=== PATIENT | male | born 1955 | race Caucasian/White ===

== ENCOUNTER 2018-08-29 11:36 | Inpatient (IN) | payer MEDICAID, OTHER ==
[~2018-08-29] VITALS: Ht 188 cm; Wt 97.5 kg
[2018-08-29 12:14] LABS: BASOPHILS % (AUTO) 0.5 % (0.0-2.0); EOSINOPHILS % (AUTO) 0.1 % (1.0-6.0); HEMATOCRIT 31.6 % (41-53); HEMOGLOBIN 10.5 g/dL (13.5-17.5); LYMPHOCYTES # (AUTO) 0.2 K/uL (1.0-4.8); LYMPHOCYTES % (AUTO) 3.4 % (22.0-44.0); MEAN CORPUSCULAR HEMOGLOBIN 35.3 pg (26.0-34.0); MEAN CORPUSCULAR HGB CONC 33.1 G/dL (31.0-37.0); MEAN CORPUSCULAR VOLUME 107 fL (80-100); MONOCYTES # (AUTO) 0.4 K/uL (0.1-1.0); MONOCYTES % (AUTO) 5.4 % (2.0-9.0); NEUTROPHILS # (AUTO) 6.6 K/uL (1.8-7.7); NEUTROPHILS % (AUTO) 90.6 % (40.0-70.0); RED BLOOD CELL COUNT(AUTO) 2.96 MIL/uL (4.50-5.90); RED CELL DISTRIBUTION WIDTH 19.2 % (11.5-14.5)
[2018-08-29 12:23] LABS: INR 1.2 (0.9-1.1); PROTHROMBIN TIME 12.3 SEC (9.4-11.6)
[2018-08-29 12:30] LABS: ALANINE AMINOTRANSFERASE 43 U/L (12-78); ALBUMIN 2.9 g/dL (3.4-5.0); ALKALINE PHOSPHATASE 112 U/L (46-116); ANION GAP 13 mmol/L (8-16); ASPARTATE AMINOTRANSFERASE 37 U/L (15-37); BILIRUBIN,TOTAL 3.7 mg/dL (0.1-1.0); CALCIUM, TOTAL 7.9 mg/dL (8.8-10.5); CARBON DIOXIDE 28 mmol/L (22-29); CHLORIDE 104 mmol/L (98-107); CREATININE 0.92 mg/dL (0.60-1.30); GLOMERULAR FILTR. RATE CALC > 60 mL/min (>60); GLUCOSE,RANDOM 248 mg/dL (70-110); SODIUM SERUM 145 mmol/L (136-145); TOTAL PROTEIN, SERUM 6.1 g/dL (6.4-8.2); UREA NITROGEN, BLOOD 41 mg/dL (7-18)
[2018-08-29 12:31] LABS: POTASSIUM 2.5 mmol/L (3.5-5.1)
[2018-08-29 12:33] LABS: PLATELET COUNT (AUTO) 91 K/uL (150-450)
[2018-08-29] MEDS ORDERED: MIDAZOLAM HCL 2 MG/2 ML VIAL IVP ONE ×2 (12:45→15:00)
[2018-08-29] MEDS ORDERED: POTASSIUM CHL 20 MEQ/0.9% NS 1,000 ML IV ONE (12:45)
[2018-08-29] MEDS ORDERED: FUROSEMIDE 40 MG/4 ML VIAL IVP ONE (13:00)
[2018-08-29] MEDS ORDERED: INSNOV SQ (13:43)
[2018-08-29] MEDS ORDERED: [UNRECOGNIZED DRUG - CODE] IV (13:43)
[2018-08-29] MEDS ORDERED: FURO100P IV (13:43)
[2018-08-29] MEDS ORDERED: CIPR500S5 PO (13:43)
[2018-08-29] MEDS ORDERED: [UNRECOGNIZED DRUG - CODE] IV (13:43)
[2018-08-29] MEDS: PIPERACILLIN/TAZO 3.375 GM/D5W 50 ML IV SCH ×2 (14:10→21:36)
[2018-08-29] MEDS ORDERED: FentaNYL CITRATE-PF 100 MCG/2 ML VIAL IVP ONE (14:15)
[2018-08-29] MEDS ORDERED: CLOPIDOGREL BISULFATE 75 MG TABLET PO ONE (14:30)
[2018-08-29] MEDS ORDERED: ACETAMINOPHEN 325 MG TABLET PO PRN (14:30)
[2018-08-29] MEDS ORDERED: HEPARIN SODIUM 25000 UNITS/D5W 250 ML IV PRN (14:30)
[2018-08-29] MEDS ORDERED: 0.9% SODIUM CHLORIDE 10 ML SYRINGE IVP PRN (14:30)
[2018-08-29] MEDS ORDERED: ONDANSETRON HCL 4 MG/2 ML VIAL IVP PRN (14:30)
[2018-08-29] MEDS ORDERED: VANCOMYCIN HCL 1.5 GM in DEXTROSE 5%-WATER 250 ML IV SCH (14:30)
[2018-08-29] MEDS ORDERED: HEPARIN SODIUM,PORCINE 5,000 UNITS/ML VIAL IVP PRN ×2 (14:45)
[2018-08-29 16:43] LABS: GLUCOSE,POINT OF CARE 232 MG/DL (70-110)
[2018-08-29 17:15] LABS: ALANINE AMINOTRANSFERASE 42 U/L (12-78); ALKALINE PHOSPHATASE 102 U/L (46-116); ANION GAP 10 mmol/L (8-16); ASPARTATE AMINOTRANSFERASE 39 U/L (15-37); BILIRUBIN,TOTAL 3.6 mg/dL (0.1-1.0); CALCIUM, TOTAL 7.8 mg/dL (8.8-10.5); CARBON DIOXIDE 31 mmol/L (22-29); CHLORIDE 104 mmol/L (98-107); CREATININE 0.97 mg/dL (0.60-1.30); GLOMERULAR FILTR. RATE CALC > 60 mL/min (>60); GLUCOSE,RANDOM 243 mg/dL (70-110); SODIUM SERUM 145 mmol/L (136-145); TOTAL PROTEIN, SERUM 5.9 g/dL (6.4-8.2); UREA NITROGEN, BLOOD 42 mg/dL (7-18)
[2018-08-29 17:18] LABS: POTASSIUM 2.4 mmol/L (3.5-5.1)
[2018-08-29] MEDS: POTASSIUM CHL 10 MEQ/WATER 50 ML IV SCH ×4 (17:33→20:30)
[2018-08-29 18:12] LABS: LACTIC ACID 2.8 mmol/L (0.4-2.0)
[2018-08-29 18:48] LABS: ABG A-A DIFF O2 71.1 mmHg (10-20.0); ABG BASE EXCESS 2.3 mmol/L (-2.0-3.0); ABG HCO3 27.1 mmol/L (22.0-26.0); ABG METHEMOGLOBIN 0.3 % (0.0-1.5); ABG OXYGEN CONTENT 14.7 mL/dL (15.0-23.0); ABG OXYGEN SATURATION 98.6 % (95.0-98.0); ABG OXYHEMOGLOBIN 96.3 % (94.0-100.0); ABG PCO2 27 mmHg (35-45); ABG PH 7.567 (7.35-7.450); ABG TOTAL HEMOGLOBIN 10.7 G/dL (12.0-18.0); PO2, ARTERIAL BG 110.6 mmHg (79.0-87.0); SITE, BLOOD GAS RT RADIAL; SOURCE, BLOOD GAS ARTERIAL; TEMPERATURE, FAHRENHEIT, BG 98.6 FAHREN (96.0-98.6)
[2018-08-29 18:49] LABS: O2 DEVICE,BLOOD GAS VENTILATOR (ROOM AIR); PEEP,BG 5 cm H2O; VT, ABG 500 ml
[2018-08-29 20:20] VITALS: BP_SYST 102; BP_SYST 78; BP_DIAS 58; BP_DIAS 74
[2018-08-29] MEDS ORDERED: SODIUM CHLORIDE 0.9% 250 ML IV ONE (21:06)
[2018-08-29] MEDS: PROPOFOL 1000 MG/ISO-OSM 100 ML IV PRN (21:25)
[2018-08-29] MEDS: PHENYLEPHRINE 200 MG/D5%-WATER 250 ML IV PRN (21:36)
[2018-08-30] VITALS: BP 91/54
[2018-08-30] MEDS ORDERED: DEXTROSE 50%-WATER 25 GM/50 ML SYRINGE IVP PRN (00:15)
[2018-08-30] MEDS ORDERED: BISACODYL 10 MG RECTAL RECTAL SUPPOSITORY PR PRN (00:15)
[2018-08-30] MEDS ORDERED: MAGNESIUM HYDROXIDE SUSPENSION 30 ML UDCUP PO PRN (00:15)
[2018-08-30] MEDS ORDERED: ALBUTEROL SULFATE 2.5 MG/0.5 ML NEB SOLUTION NEB PRN (00:15)
[2018-08-30] MEDS ORDERED: IPRATROPIUM BROMIDE 0.5 MG/2.5 ML NEB SOLUTION NEB PRN (00:15)
[2018-08-30] MEDS ORDERED: ZOLPIDEM TARTRATE 5 MG TABLET PO PRN (00:15)
[2018-08-30] MEDS ORDERED: ONDANSETRON HCL 4 MG/2 ML VIAL IVP PRN (00:15)
[2018-08-30] MEDS ORDERED: ACETAMINOPHEN 325 MG TABLET PO PRN (00:15)
[2018-08-30] MEDS: POTASSIUM CHL 10 MEQ/WATER 50 ML IV PRN ×7 (00:50→11:14)
[2018-08-30] MEDS ORDERED: MAGNESIUM GLUCONATE 1 GM/5 ML LIQUID 22 ML UDCUP NG PRN (01:30)
[2018-08-30] MEDS ORDERED: MAGNESIUM SULFATE 2 GM/WATER 50 ML IV PRN (01:30)
[2018-08-30] MEDS ORDERED: MAGNESIUM SULFATE 4 GM/WATER 100 ML IV PRN (01:30)
[2018-08-30] MEDS ORDERED: PIPERACILLIN/TAZO 3.375 GM/D5W 50 ML IV SCH (02:00)
[2018-08-30] MEDS ORDERED: HEPARIN SODIUM,PORCINE 5,000 UNITS/ML VIAL IVP PRN ×2 (02:00)
[2018-08-30] MEDS: PIPERACILLIN/TAZO 3.375 GM/D5W 50 ML IV SCH ×4 (02:08→23:30)
[2018-08-30] MEDS: NOREPINEPHRINE 4 MG/D5%-WATER 250 ML IV PRN ×3 (02:54→23:40)
[2018-08-30 04:00] VITALS: BP 100/79
[2018-08-30] MEDS: INSULIN LISPRO 100 UNITS/ML SQ PRN ×3 (05:53→21:14)
[2018-08-30 05:54] LABS: GLUCOMETER DEV NAME(LOC) PVLAB146; GLUCOSE,POINT OF CARE 165 MG/DL (70-110)
[2018-08-30 07:05] LABS: BASOPHILS % (AUTO) 0.7 % (0.0-2.0); EOSINOPHILS % (AUTO) 0.7 % (1.0-6.0); HEMATOCRIT 34.5 % (41-53); HEMOGLOBIN 11.4 g/dL (13.5-17.5); LYMPHOCYTES # (AUTO) 1.5 K/uL (1.0-4.8); LYMPHOCYTES % (AUTO) 14.5 % (22.0-44.0); MEAN CORPUSCULAR HEMOGLOBIN 35.3 pg (26.0-34.0); MEAN CORPUSCULAR HGB CONC 33.2 G/dL (31.0-37.0); MEAN CORPUSCULAR VOLUME 106 fL (80-100); MONOCYTES # (AUTO) 0.7 K/uL (0.1-1.0); MONOCYTES % (AUTO) 7.4 % (2.0-9.0); NEUTROPHILS # (AUTO) 7.7 K/uL (1.8-7.7); NEUTROPHILS % (AUTO) 76.7 % (40.0-70.0); PLATELET COUNT (AUTO) 155 K/uL (150-450); RED BLOOD CELL COUNT(AUTO) 3.24 MIL/uL (4.50-5.90); RED CELL DISTRIBUTION WIDTH 19.7 % (11.5-14.5)
[2018-08-30 07:26] LABS: ALANINE AMINOTRANSFERASE 48 U/L (12-78); ALBUMIN 2.8 g/dL (3.4-5.0); ALKALINE PHOSPHATASE 118 U/L (46-116); ANION GAP 14 mmol/L (8-16); ASPARTATE AMINOTRANSFERASE 51 U/L (15-37); BILIRUBIN,TOTAL 5.3 mg/dL (0.1-1.0); CALCIUM, TOTAL 8.3 mg/dL (8.8-10.5); CARBON DIOXIDE 26 mmol/L (22-29); CHLORIDE 104 mmol/L (98-107); CREATININE 0.97 mg/dL (0.60-1.30); GLOMERULAR FILTR. RATE CALC > 60 mL/min (>60); GLUCOSE,RANDOM 164 mg/dL (70-110); SODIUM SERUM 144 mmol/L (136-145); TOTAL PROTEIN, SERUM 6.1 g/dL (6.4-8.2); UREA NITROGEN, BLOOD 43 mg/dL (7-18)
[2018-08-30 07:31] LABS: POTASSIUM 2.8 mmol/L (3.5-5.1)
[2018-08-30 08:00] VITALS: BP 104/76
[2018-08-30] MEDS ORDERED: HEPARIN SODIUM,PORCINE 5,000 UNITS/ML VIAL SQ SCH (08:00)
[2018-08-30] MEDS: VANCOMYCIN HCL 1.5 GM in DEXTROSE 5%-WATER 250 ML IV SCH ×2 (08:54→21:12)
[2018-08-30] MEDS: DOCUSATE SODIUM 100 MG CAPSULE PO SCH ×2 (10:59→21:00)
[2018-08-30] MEDS: PANTOPRAZOLE SODIUM 40 MG/VIAL IVP SCH (10:59)
[2018-08-30] MEDS: HEPARIN SODIUM 25000 UNITS/D5W 250 ML IV PRN (11:10)
[2018-08-30] MEDS: ASPIRIN 81 MG EC TABLET PO SCH (11:23)
[2018-08-30] MEDS: ATORVASTATIN CALCIUM 20 MG TABLET PO SCH (11:24)
[2018-08-30 12:00] VITALS: BP 90/64
[2018-08-30] MEDS: PHENYLEPHRINE 200 MG/D5%-WATER 250 ML IV PRN (14:01)
[2018-08-30 14:10] LABS: GLUCOSE,POINT OF CARE 138 MG/DL (70-110)
[2018-08-30 16:00] VITALS: BP 99/65
[2018-08-30] MEDS: PROPOFOL 1000 MG/ISO-OSM 100 ML IV PRN (18:51)
[2018-08-30 20:00] VITALS: BP 105/78
[2018-08-31] VITALS: BP 136/73
[2018-08-31] MEDS: PROPOFOL 1000 MG/ISO-OSM 100 ML IV PRN ×2 (03:11→21:59)
[2018-08-31 04:00] VITALS: BP 155/69
[2018-08-31 05:03] LABS: ANION GAP 10 mmol/L (8-16); CALCIUM, TOTAL 8.2 mg/dL (8.8-10.5); CARBON DIOXIDE 28 mmol/L (22-29); CHLORIDE 104 mmol/L (98-107); CREATININE 0.89 mg/dL (0.60-1.30); GLOMERULAR FILTR. RATE CALC > 60 mL/min (>60); GLUCOSE,RANDOM 150 mg/dL (70-110); SODIUM SERUM 142 mmol/L (136-145); UREA NITROGEN, BLOOD 38 mg/dL (7-18)
[2018-08-31 05:08] LABS: POTASSIUM 2.8 mmol/L (3.5-5.1)
[2018-08-31] MEDS: POTASSIUM CHL 10 MEQ/WATER 50 ML IV PRN ×4 (05:18→07:56)
[2018-08-31] MEDS: PIPERACILLIN/TAZO 3.375 GM/D5W 50 ML IV SCH ×4 (05:18→22:43)
[2018-08-31] MEDS: VANCOMYCIN HCL 1.5 GM in DEXTROSE 5%-WATER 250 ML IV SCH ×2 (06:20→20:28)
[2018-08-31 06:24] LABS: GLUCOMETER DEV NAME(LOC) PVLAB146; GLUCOSE,POINT OF CARE 144 MG/DL (70-110)
[2018-08-31 06:24] LABS: GLUCOMETER DEV NAME(LOC) PVLAB146; GLUCOSE,POINT OF CARE 156 MG/DL (70-110)
[2018-08-31] MEDS: PHENYLEPHRINE 200 MG/D5%-WATER 250 ML IV PRN (07:01)
[2018-08-31 07:54] LABS: ABG A-A DIFF O2 77.3 mmHg (10-20.0); ABG BASE EXCESS 0.9 mmol/L (-2.0-3.0); ABG CARBOXYHEMOGLOBIN 1.8 % (0.0-1.5); ABG HCO3 26.1 mmol/L (22.0-26.0); ABG METHEMOGLOBIN 0.2 % (0.0-1.5); ABG OXYGEN CONTENT 17.3 mL/dL (15.0-23.0); ABG OXYGEN SATURATION 98.4 % (95.0-98.0); ABG OXYHEMOGLOBIN 96.4 % (94.0-100.0); ABG PCO2 28 mmHg (35-45); ABG PH 7.541 (7.35-7.450); ABG TOTAL HEMOGLOBIN 12.7 G/dL (12.0-18.0); PO2, ARTERIAL BG 103.8 mmHg (79.0-87.0); SOURCE, BLOOD GAS ARTERIAL; TEMPERATURE, FAHRENHEIT, BG 98.6 FAHREN (96.0-98.6)
[2018-08-31 07:57] LABS: SITE, BLOOD GAS RT RADIAL
[2018-08-31 07:58] LABS: O2 DEVICE,BLOOD GAS VENTILATOR (ROOM AIR); PEEP,BG 5 cm H2O; VT, ABG 500 ml
[2018-08-31 08:00] VITALS: BP 133/59
[2018-08-31] MEDS: PANTOPRAZOLE SODIUM 40 MG/VIAL IVP SCH (09:09)
[2018-08-31] MEDS: FUROSEMIDE 40 MG/4 ML VIAL IVP SCH (09:09)
[2018-08-31] MEDS: DOCUSATE SODIUM 100 MG CAPSULE PO SCH ×2 (09:10→20:35)
[2018-08-31] MEDS: ATORVASTATIN CALCIUM 20 MG TABLET PO SCH (09:12)
[2018-08-31] MEDS: ASPIRIN 81 MG EC TABLET PO SCH (09:12)
[2018-08-31] MEDS: POTASSIUM CHLORIDE 10% 40 MEQ/30 ML LIQUID UDCUP NG PRN ×2 (10:05→15:57)
[2018-08-31 12:00] VITALS: BP 110/59
[2018-08-31 12:03] LABS: GLUCOMETER DEV NAME(LOC) PVLAB146; GLUCOSE,POINT OF CARE 118 MG/DL (70-110)
[2018-08-31] MEDS: HEPARIN SODIUM 25000 UNITS/D5W 250 ML IV PRN (13:47)
[2018-08-31] MEDS: NOREPINEPHRINE 4 MG/D5%-WATER 250 ML IV PRN (13:51)
[2018-08-31 16:00] VITALS: BP 104/70
[2018-08-31 19:04] LABS: GLUCOMETER DEV NAME(LOC) PVLAB146; GLUCOSE,POINT OF CARE 134 MG/DL (70-110)
[2018-08-31 20:00] VITALS: BP 91/47
[2018-08-31] MEDS: INSULIN LISPRO 100 UNITS/ML SQ PRN (22:42)
[2018-08-31 22:49] LABS: GLUCOMETER DEV NAME(LOC) PVLAB146; GLUCOSE,POINT OF CARE 181 MG/DL (70-110)
[2018-09-01] VITALS (7 sets, daily range): BP systolic 91–121; BP diastolic 50–69
[2018-09-01] MEDS: POTASSIUM CHLORIDE 10% 40 MEQ/30 ML LIQUID UDCUP NG PRN (00:13)
[2018-09-01 04:56] LABS: BASOPHILS % (AUTO) 0.7 % (0.0-2.0); EOSINOPHILS % (AUTO) 5.5 % (1.0-6.0); HEMATOCRIT 34.2 % (41-53); HEMOGLOBIN 11.4 g/dL (13.5-17.5); LYMPHOCYTES # (AUTO) 1.8 K/uL (1.0-4.8); LYMPHOCYTES % (AUTO) 20.6 % (22.0-44.0); MEAN CORPUSCULAR HGB CONC 33.3 G/dL (31.0-37.0); MEAN CORPUSCULAR VOLUME 105 fL (80-100); MONOCYTES # (AUTO) 0.4 K/uL (0.1-1.0); MONOCYTES % (AUTO) 4.9 % (2.0-9.0); NEUTROPHILS % (AUTO) 68.3 % (40.0-70.0); PLATELET COUNT (AUTO) 121 K/uL (150-450); RED BLOOD CELL COUNT(AUTO) 3.25 MIL/uL (4.50-5.90); RED CELL DISTRIBUTION WIDTH 18.3 % (11.5-14.5)
[2018-09-01] MEDS: PIPERACILLIN/TAZO 3.375 GM/D5W 50 ML IV SCH ×4 (05:17→21:57)
[2018-09-01 05:26] LABS: B-TYPE NATRIURETIC PEPTIDE 3580 pg/mL (0-100)
[2018-09-01 05:30] LABS: ALANINE AMINOTRANSFERASE 64 U/L (12-78); ALBUMIN 2.1 g/dL (3.4-5.0); ALKALINE PHOSPHATASE 106 U/L (46-116); ANION GAP 7 mmol/L (8-16); ASPARTATE AMINOTRANSFERASE 42 U/L (15-37); BILIRUBIN,TOTAL 4.9 mg/dL (0.1-1.0); CALCIUM, TOTAL 7.8 mg/dL (8.8-10.5); CARBON DIOXIDE 31 mmol/L (22-29); CHLORIDE 106 mmol/L (98-107); CREATININE 0.83 mg/dL (0.60-1.30); GLOMERULAR FILTR. RATE CALC > 60 mL/min (>60); GLUCOSE,RANDOM 135 mg/dL (70-110); POTASSIUM 3.8 mmol/L (3.5-5.1); SODIUM SERUM 144 mmol/L (136-145); TOTAL PROTEIN, SERUM 5.7 g/dL (6.4-8.2); UREA NITROGEN, BLOOD 29 mg/dL (7-18); VANCOMYCIN,RANDOM 36.5 mcg/mL (25.0-50.0)
[2018-09-01] MEDS: VANCOMYCIN HCL 1.5 GM in DEXTROSE 5%-WATER 250 ML IV SCH (06:26)
[2018-09-01] MEDS: NOREPINEPHRINE 4 MG/D5%-WATER 250 ML IV PRN (06:26)
[2018-09-01] MEDS: ASPIRIN 81 MG EC TABLET PO SCH (09:01)
[2018-09-01] MEDS: ATORVASTATIN CALCIUM 20 MG TABLET PO SCH (09:01)
[2018-09-01] MEDS: PROPOFOL 1000 MG/ISO-OSM 100 ML IV PRN (09:01)
[2018-09-01] MEDS: PANTOPRAZOLE SODIUM 40 MG/VIAL IVP SCH (09:01)
[2018-09-01] MEDS: FUROSEMIDE 40 MG/4 ML VIAL IVP SCH (09:01)
[2018-09-01] MEDS: DOCUSATE SODIUM 100 MG CAPSULE PO SCH ×2 (09:01→20:05)
[2018-09-01 13:43] LABS: GLUCOMETER DEV NAME(LOC) PVLAB146; GLUCOSE,POINT OF CARE 138 MG/DL (70-110)
[2018-09-01 15:39] LABS: GLUCOSE,POINT OF CARE 122 MG/DL (70-110)
[2018-09-01 15:39] LABS: GLUCOSE,POINT OF CARE 110 MG/DL (70-110)
[2018-09-01] MEDS: VANCOMYCIN HCL 1 GM/D5% WATER 200 ML IV SCH (19:37)
[2018-09-01] MEDS: MORPHINE SULFATE 4 MG/ML SYRINGE IVP PRN (20:05)
[2018-09-01] MEDS ORDERED: SODIUM CHLORIDE 0.9% 250 ML IV ONE (22:30)
[2018-09-01] MEDS: HEPARIN SODIUM 25000 UNITS/D5W 250 ML IV PRN (23:51)
[2018-09-02] VITALS (8 sets, daily range): BP systolic 86–118; BP diastolic 50–66
[2018-09-02] MEDS: INSULIN LISPRO 100 UNITS/ML SQ PRN (00:10)
[2018-09-02] MEDS: MORPHINE SULFATE 4 MG/ML SYRINGE IVP PRN ×2 (01:52→20:56)
[2018-09-02] MEDS: PROPOFOL 1000 MG/ISO-OSM 100 ML IV PRN ×2 (01:57→09:34)
[2018-09-02] MEDS: PIPERACILLIN/TAZO 3.375 GM/D5W 50 ML IV SCH ×4 (03:59→22:24)
[2018-09-02] MEDS: PHENYLEPHRINE 200 MG/D5%-WATER 250 ML IV PRN (04:32)
[2018-09-02 05:06] LABS: BASOPHILS % (AUTO) 0.6 % (0.0-2.0); EOSINOPHILS % (AUTO) 6.8 % (1.0-6.0); HEMATOCRIT 30.1 % (41-53); HEMOGLOBIN 10.2 g/dL (13.5-17.5); LYMPHOCYTES # (AUTO) 1.2 K/uL (1.0-4.8); MEAN CORPUSCULAR HEMOGLOBIN 36.3 pg (26.0-34.0); MEAN CORPUSCULAR HGB CONC 33.8 G/dL (31.0-37.0); MEAN CORPUSCULAR VOLUME 107 fL (80-100); MONOCYTES # (AUTO) 0.2 K/uL (0.1-1.0); MONOCYTES % (AUTO) 2.9 % (2.0-9.0); NEUTROPHILS # (AUTO) 3.9 K/uL (1.8-7.7); NEUTROPHILS % (AUTO) 68.7 % (40.0-70.0); PLATELET COUNT (AUTO) 80 K/uL (150-450); RED BLOOD CELL COUNT(AUTO) 2.81 MIL/uL (4.50-5.90); RED CELL DISTRIBUTION WIDTH 18.7 % (11.5-14.5)
[2018-09-02 05:35] LABS: ALANINE AMINOTRANSFERASE 42 U/L (12-78); ALBUMIN 1.7 g/dL (3.4-5.0); ALKALINE PHOSPHATASE 83 U/L (46-116); ANION GAP 3 mmol/L (8-16); ASPARTATE AMINOTRANSFERASE 30 U/L (15-37); BILIRUBIN,TOTAL 3.9 mg/dL (0.1-1.0); CALCIUM, TOTAL 7.5 mg/dL (8.8-10.5); CARBON DIOXIDE 34 mmol/L (22-29); CHLORIDE 105 mmol/L (98-107); CREATININE 0.82 mg/dL (0.60-1.30); GLOMERULAR FILTR. RATE CALC > 60 mL/min (>60); GLUCOSE,RANDOM 124 mg/dL (70-110); SODIUM SERUM 142 mmol/L (136-145); TOTAL PROTEIN, SERUM 5.1 g/dL (6.4-8.2); UREA NITROGEN, BLOOD 22 mg/dL (7-18)
[2018-09-02 05:46] LABS: POTASSIUM 2.9 mmol/L (3.5-5.1)
[2018-09-02] MEDS: POTASSIUM CHL 10 MEQ/WATER 50 ML IV PRN ×7 (05:51→12:54)
[2018-09-02] MEDS: VANCOMYCIN HCL 1 GM/D5% WATER 200 ML IV SCH ×2 (06:48→20:18)
[2018-09-02] MEDS: FUROSEMIDE 40 MG/4 ML VIAL IVP SCH ×2 (09:03→21:25)
[2018-09-02] MEDS: PANTOPRAZOLE SODIUM 40 MG/VIAL IVP SCH (09:03)
[2018-09-02] MEDS: ASPIRIN 81 MG EC TABLET PO SCH (09:04)
[2018-09-02] MEDS: DOCUSATE SODIUM 100 MG CAPSULE PO SCH ×2 (09:04→21:25)
[2018-09-02] MEDS: ATORVASTATIN CALCIUM 20 MG TABLET PO SCH (09:04)
[2018-09-02 11:23] LABS: PHOSPHORUS 2.7 mg/dL (2.5-4.9); POTASSIUM 3.4 mmol/L (3.5-5.1)
[2018-09-02 12:39] LABS: GLUCOSE,POINT OF CARE 113 MG/DL (70-110)
[2018-09-02 12:39] LABS: GLUCOSE,POINT OF CARE 90 MG/DL (70-110)
[2018-09-02 12:39] LABS: GLUCOSE,POINT OF CARE 111 MG/DL (70-110)
[2018-09-02 15:04] LABS: ABG A-A DIFF O2 62.9 mmHg (10-20.0); ABG BASE EXCESS -1.3 mmol/L (-2.0-3.0); ABG CARBOXYHEMOGLOBIN 2.4 % (0.0-1.5); ABG HCO3 24.1 mmol/L (22.0-26.0); ABG METHEMOGLOBIN 0.3 % (0.0-1.5); ABG OXYGEN CONTENT 15.4 mL/dL (15.0-23.0); ABG OXYGEN SATURATION 98.6 % (95.0-98.0); ABG OXYHEMOGLOBIN 95.9 % (94.0-100.0); ABG PCO2 28 mmHg (35-45); ABG PH 7.504 (7.35-7.450); ABG TOTAL HEMOGLOBIN 11.3 G/dL (12.0-18.0); PO2, ARTERIAL BG 117.8 mmHg (79.0-87.0); SOURCE, BLOOD GAS ARTERIAL; TEMPERATURE, FAHRENHEIT, BG 98.6 FAHREN (96.0-98.6)
[2018-09-02 15:06] LABS: O2 DEVICE,BLOOD GAS VENTILATOR (ROOM AIR); PEEP,BG 0 cm H2O; PRESSURE SUPPORT, BG 8 cm H2O; SITE, BLOOD GAS LFT RADIAL; VENT MODE, BG Press. Support Vent. (ROOM AIR)
[2018-09-02] MEDS ORDERED: METOPROLOL TARTRATE 5 MG/5 ML VIAL IVP SCH (18:00)
[2018-09-02] MEDS ORDERED: SODIUM CHLORIDE 0.9% 0 ML IV ONE (23:17)
[2018-09-03] VITALS (7 sets, daily range): BP systolic 73–115; BP diastolic 48–65
[2018-09-03] MEDS: PHENYLEPHRINE 200 MG/D5%-WATER 250 ML IV PRN (01:08)
[2018-09-03] MEDS: PROPOFOL 1000 MG/ISO-OSM 100 ML IV PRN ×3 (02:58→22:57)
[2018-09-03] MEDS: PIPERACILLIN/TAZO 3.375 GM/D5W 50 ML IV SCH ×4 (04:12→22:19)
[2018-09-03 05:45] LABS: BASOPHILS % (AUTO) 1.2 % (0.0-2.0); EOSINOPHILS % (AUTO) 6.6 % (1.0-6.0); HEMATOCRIT 29.5 % (41-53); HEMOGLOBIN 9.9 g/dL (13.5-17.5); LYMPHOCYTES % (AUTO) 18.3 % (22.0-44.0); MEAN CORPUSCULAR HEMOGLOBIN 35.5 pg (26.0-34.0); MEAN CORPUSCULAR HGB CONC 33.7 G/dL (31.0-37.0); MEAN CORPUSCULAR VOLUME 105 fL (80-100); MONOCYTES # (AUTO) 0.2 K/uL (0.1-1.0); MONOCYTES % (AUTO) 4.1 % (2.0-9.0); NEUTROPHILS # (AUTO) 3.9 K/uL (1.8-7.7); NEUTROPHILS % (AUTO) 69.8 % (40.0-70.0); RED CELL DISTRIBUTION WIDTH 18.3 % (11.5-14.5)
[2018-09-03 05:55] LABS: ALANINE AMINOTRANSFERASE 35 U/L (12-78); ALBUMIN 1.8 g/dL (3.4-5.0); ALKALINE PHOSPHATASE 81 U/L (46-116); ANION GAP 7 mmol/L (8-16); ASPARTATE AMINOTRANSFERASE 29 U/L (15-37); BILIRUBIN,TOTAL 3.8 mg/dL (0.1-1.0); CALCIUM, TOTAL 7.7 mg/dL (8.8-10.5); CARBON DIOXIDE 30 mmol/L (22-29); CHLORIDE 104 mmol/L (98-107); CREATININE 0.87 mg/dL (0.60-1.30); GLOMERULAR FILTR. RATE CALC > 60 mL/min (>60); GLUCOSE,RANDOM 111 mg/dL (70-110); POTASSIUM 3.5 mmol/L (3.5-5.1); SODIUM SERUM 141 mmol/L (136-145); TOTAL PROTEIN, SERUM 5.3 g/dL (6.4-8.2); UREA NITROGEN, BLOOD 23 mg/dL (7-18)
[2018-09-03] MEDS: VANCOMYCIN HCL 1 GM/D5% WATER 200 ML IV SCH ×2 (06:41→19:01)
[2018-09-03] MEDS: INSULIN LISPRO 100 UNITS/ML SQ PRN (06:42)
[2018-09-03] MEDS: POTASSIUM CHL 10 MEQ/WATER 50 ML IV PRN ×3 (06:53→08:12)
[2018-09-03 07:12] LABS: PLATELET COUNT (AUTO) 70 K/uL (150-450)
[2018-09-03 07:24] LABS: GLUCOSE,POINT OF CARE 120 MG/DL (70-110)
[2018-09-03 07:24] LABS: GLUCOSE,POINT OF CARE 115 MG/DL (70-110)
[2018-09-03 07:24] LABS: GLUCOSE,POINT OF CARE 131 MG/DL (70-110)
[2018-09-03 07:24] LABS: GLUCOSE,POINT OF CARE 123 MG/DL (70-110)
[2018-09-03] MEDS: PANTOPRAZOLE SODIUM 40 MG/VIAL IVP SCH (08:12)
[2018-09-03] MEDS: MULTIVITAMINS WITH MINERALS, THERAPEUTIC 15 ML UDCUP GT SCH (08:13)
[2018-09-03] MEDS: DOCUSATE SODIUM 100 MG CAPSULE PO SCH ×2 (08:13→21:06)
[2018-09-03] MEDS: HYDROCODONE/ACETAMINOPHEN 5-325 MG TABLET PO PRN (08:13)
[2018-09-03] MEDS: ATORVASTATIN CALCIUM 20 MG TABLET PO SCH (08:13)
[2018-09-03] MEDS: FUROSEMIDE 40 MG/4 ML VIAL IVP SCH ×2 (08:13→21:06)
[2018-09-03] MEDS: ASPIRIN 81 MG EC TABLET PO SCH (08:13)
[2018-09-03] MEDS: MORPHINE SULFATE 4 MG/ML SYRINGE IVP PRN (09:15)
[2018-09-03 12:43] LABS: GLUCOSE,POINT OF CARE 140 MG/DL (70-110)
[2018-09-03 17:49] LABS: GLUCOSE,POINT OF CARE 119 MG/DL (70-110)
[2018-09-04] VITALS (9 sets, daily range): BP systolic 91–114; BP diastolic 50–82
[2018-09-04] MEDS: PHENYLEPHRINE 200 MG/D5%-WATER 250 ML IV PRN (00:59)
[2018-09-04] MEDS ORDERED: SODIUM CHLORIDE 0.9% 250 ML IV ONE (04:10)
[2018-09-04] MEDS: PIPERACILLIN/TAZO 3.375 GM/D5W 50 ML IV SCH ×4 (04:11→21:38)
[2018-09-04 05:32] LABS: ANION GAP 4 mmol/L (8-16); CALCIUM, TOTAL 7.6 mg/dL (8.8-10.5); CARBON DIOXIDE 32 mmol/L (22-29); CHLORIDE 103 mmol/L (98-107); CREATININE 1.01 mg/dL (0.60-1.30); GLOMERULAR FILTR. RATE CALC > 60 mL/min (>60); GLUCOSE,RANDOM 136 mg/dL (70-110); POTASSIUM 3.6 mmol/L (3.5-5.1); SODIUM SERUM 139 mmol/L (136-145); UREA NITROGEN, BLOOD 24 mg/dL (7-18); VANCOMYCIN,RANDOM 42.6 mcg/mL (25.0-50.0)
[2018-09-04] MEDS: VANCOMYCIN HCL 1 GM/D5% WATER 200 ML IV SCH (06:05)
[2018-09-04] MEDS: POTASSIUM CHL 10 MEQ/WATER 50 ML IV PRN ×3 (06:05→07:48)
[2018-09-04] MEDS: INSULIN LISPRO 100 UNITS/ML SQ PRN (06:06)
[2018-09-04 06:49] LABS: GLUCOSE,POINT OF CARE 166 MG/DL (70-110)
[2018-09-04 06:49] LABS: GLUCOSE,POINT OF CARE 132 MG/DL (70-110)
[2018-09-04] MEDS: ATORVASTATIN CALCIUM 20 MG TABLET PO SCH (07:39)
[2018-09-04] MEDS: PANTOPRAZOLE SODIUM 40 MG/VIAL IVP SCH (07:39)
[2018-09-04] MEDS: FUROSEMIDE 40 MG/4 ML VIAL IVP SCH ×3 (07:40→23:49)
[2018-09-04] MEDS: ASPIRIN 81 MG EC TABLET PO SCH (07:41)
[2018-09-04] MEDS: DOCUSATE SODIUM 100 MG CAPSULE PO SCH ×2 (07:41→21:38)
[2018-09-04] MEDS: MULTIVITAMINS WITH MINERALS, THERAPEUTIC 15 ML UDCUP GT SCH (07:41)
[2018-09-04] MEDS: PROPOFOL 1000 MG/ISO-OSM 100 ML IV PRN ×2 (07:48→17:06)
[2018-09-04] MEDS: HYDROCODONE/ACETAMINOPHEN 5-325 MG TABLET PO PRN (11:46)
[2018-09-04 12:35] LABS: GLUCOSE,POINT OF CARE 125 MG/DL (70-110)
[2018-09-04 17:09] LABS: GLUCOSE,POINT OF CARE 118 MG/DL (70-110)
[2018-09-05] VITALS (8 sets, daily range): BP systolic 98–122; BP diastolic 50–66
[2018-09-05] MEDS: PROPOFOL 1000 MG/ISO-OSM 100 ML IV PRN ×2 (03:21→10:52)
[2018-09-05] MEDS: PIPERACILLIN/TAZO 3.375 GM/D5W 50 ML IV SCH ×3 (03:53→16:42)
[2018-09-05 05:16] LABS: EOSINOPHILS % (AUTO) 9.1 % (1.0-6.0); HEMATOCRIT 26.9 % (41-53); HEMOGLOBIN 9.1 g/dL (13.5-17.5); LYMPHOCYTES # (AUTO) 1.2 K/uL (1.0-4.8); LYMPHOCYTES % (AUTO) 35.4 % (22.0-44.0); MEAN CORPUSCULAR HEMOGLOBIN 36.4 pg (26.0-34.0); MEAN CORPUSCULAR HGB CONC 33.9 G/dL (31.0-37.0); MEAN CORPUSCULAR VOLUME 107 fL (80-100); MONOCYTES # (AUTO) 0.2 K/uL (0.1-1.0); NEUTROPHILS # (AUTO) 1.6 K/uL (1.8-7.7); NEUTROPHILS % (AUTO) 48.5 % (40.0-70.0); PLATELET COUNT (AUTO) 60 K/uL (150-450); RED CELL DISTRIBUTION WIDTH 18.1 % (11.5-14.5)
[2018-09-05 05:36] LABS: ALANINE AMINOTRANSFERASE 31 U/L (12-78); ALBUMIN 1.8 g/dL (3.4-5.0); ALKALINE PHOSPHATASE 88 U/L (46-116); ANION GAP 5 mmol/L (8-16); ASPARTATE AMINOTRANSFERASE 32 U/L (15-37); BILIRUBIN,TOTAL 2.9 mg/dL (0.1-1.0); CALCIUM, TOTAL 7.8 mg/dL (8.8-10.5); CARBON DIOXIDE 32 mmol/L (22-29); CHLORIDE 104 mmol/L (98-107); CREATININE 0.94 mg/dL (0.60-1.30); GLOMERULAR FILTR. RATE CALC > 60 mL/min (>60); GLUCOSE,RANDOM 119 mg/dL (70-110); POTASSIUM 3.9 mmol/L (3.5-5.1); SODIUM SERUM 141 mmol/L (136-145); TOTAL PROTEIN, SERUM 5.8 g/dL (6.4-8.2); UREA NITROGEN, BLOOD 24 mg/dL (7-18); VANCOMYCIN,RANDOM 34.9 mcg/mL (25.0-50.0)
[2018-09-05 05:46] LABS: B-TYPE NATRIURETIC PEPTIDE 1920 pg/mL (0-100)
[2018-09-05 06:44] LABS: GLUCOSE,POINT OF CARE 129 MG/DL (70-110)
[2018-09-05 06:44] LABS: GLUCOSE,POINT OF CARE 126 MG/DL (70-110)
[2018-09-05] MEDS: PANTOPRAZOLE SODIUM 40 MG/VIAL IVP SCH (07:56)
[2018-09-05] MEDS: DOCUSATE SODIUM 100 MG CAPSULE PO SCH (07:56)
[2018-09-05] MEDS: ASPIRIN 81 MG EC TABLET PO SCH (07:56)
[2018-09-05] MEDS: ATORVASTATIN CALCIUM 20 MG TABLET PO SCH (07:56)
[2018-09-05] MEDS: MULTIVITAMINS WITH MINERALS, THERAPEUTIC 15 ML UDCUP GT SCH (07:57)
[2018-09-05] MEDS ORDERED: VANCOMYCIN HCL 1 GM/D5% WATER 200 ML IV SCH (08:00)
[2018-09-05] MEDS ORDERED: FUROSEMIDE 40 MG/4 ML VIAL IVP SCH (08:00)
[2018-09-05 10:47] LABS: SPECIMENTYPE,BODY FLUID THORACENTESIS
[2018-09-05] MEDS ORDERED: ONDANSETRON HCL 4 MG/2 ML VIAL IVP PRN (11:15)
[2018-09-05] MEDS ORDERED: DiphenhydrAMINE HCL 50 MG/ML VIAL IVP PRN (11:15)
[2018-09-05] MEDS ORDERED: MORPHINE SULFATE 100 MG/NS/PF 100 ML IV PRN (11:15)
[2018-09-05 12:18] LABS: APPEARANCE,SPUN,BODY FLUID CLEAR (CLEAR); APPEARANCE,UNSPUN,BODY FLUID HAZY (CLEAR); TOTAL VOLUME,BODY FLUID 890 mL; WBC, BODY FLUID 270 /cu. mm.
[2018-09-05 12:19] LABS: LYMPHOCYTES,BODY FLUID 20 %; MONOCYTES,BODY FLUID 12 %; NEUTROPHILS,BODY FLUID 64 %
[2018-09-05 12:20] LABS: BASOPHILS,BODY FLUID 0 %; EOSINOPHILS,BF (ANAL) 0 %; OTHER CELLS,BODY FLUID 4; PH, BODY FLUID 8
[2018-09-05 12:21] LABS: COLOR,BODY FLUID DARK YELLOW (LT YELLOW)
[2018-09-05] MEDS ORDERED: SODIUM CHLORIDE 0.9% 100 ML ONE (13:16)
[2018-09-05] MEDS ORDERED: SODIUM CHLORIDE 0.9% 250 ML IV ONE (13:17)
[2018-09-05 13:38] LABS: GLUCOSE,POINT OF CARE 113 MG/DL (70-110)
[2018-09-05 22:29] LABS: GLUCOSE,POINT OF CARE 109 MG/DL (70-110)
[2018-09-06] VITALS: BP 93/49
[2018-09-06] MEDS ORDERED: MORPHINE SULFATE 100 MG/NS/PF 100 ML IV PRN (01:09)
[2018-09-06] MEDS ORDERED: VANCOMYCIN HCL 500 MG in DEXTROSE 5%-WATER 100 ML IV SCH (08:00)
== END 2018-09-06 02:45 | disposition expired | DRG 720 ==
LOC: EMS 11:40 → ICU 18:20
PROVIDERS: ADMIT Hospitalist; ATTEND Hospitalist
PROC: 5A1955Z Respiratory Ventilation, Greater than 96 Consecutive Hours (ICD-10-PCS; principal; 2018-08-29)
PROC: 05HY33Z Insertion of Infusion Device into Upper Vein, Percutaneous Approach (ICD-10-PCS; 2018-09-03)
PROC: B54MZZA Ultrasonography of Right Upper Extremity Veins, Guidance (ICD-10-PCS; 2018-09-03)
PROC: 0W9B3ZZ Drainage of Left Pleural Cavity, Percutaneous Approach (ICD-10-PCS; 2018-09-05)
DX: A41.9 Sepsis, unspecified organism (principal); J96.00 Acute respiratory failure, unspecified whether with hypoxia or hypercapnia; I21.4 Non-ST elevation (NSTEMI) myocardial infarction; E43 Unspecified severe protein-calorie malnutrition; G93.40 Encephalopathy, unspecified; I96 Gangrene, not elsewhere classified; R65.21 Severe sepsis with septic shock; R57.0 Cardiogenic shock; I34.0 Nonrheumatic mitral (valve) insufficiency; Z66 Do not resuscitate; F10.21 Alcohol dependence, in remission; J90 Pleural effusion, not elsewhere classified; S37.33XA Laceration of urethra, initial encounter; D69.6 Thrombocytopenia, unspecified; E11.22 Type 2 diabetes mellitus with diabetic chronic kidney disease; I13.2 Hypertensive heart and chronic kidney disease with heart failure and with stage 5 chronic kidney disease, or end stage renal disease; N49.2 Inflammatory disorders of scrotum; E11.52 Type 2 diabetes mellitus with diabetic peripheral angiopathy with gangrene; L03.114 Cellulitis of left upper limb; L89.90 Pressure ulcer of unspecified site, unspecified stage; I99.8 Other disorder of circulatory system; R23.0 Cyanosis; I25.10 Atherosclerotic heart disease of native coronary artery without angina pectoris; I25.5 Ischemic cardiomyopathy; S42.202A Unspecified fracture of upper end of left humerus, initial encounter for closed fracture; N18.6 End stage renal disease; E11.51 Type 2 diabetes mellitus with diabetic peripheral angiopathy without gangrene; I50.23 Acute on chronic systolic (congestive) heart failure; J44.9 Chronic obstructive pulmonary disease, unspecified; E87.6 Hypokalemia; D64.9 Anemia, unspecified; Z87.891 Personal history of nicotine dependence; X58.XXXA Exposure to other specified factors, initial encounter; Y93.89 Activity, other specified; Y92.89 Other specified places as the place of occurrence of the external cause; Y99.8 Other external cause status; I25.2 Old myocardial infarction; Z68.27 Body mass index [BMI] 27.0-27.9, adult
CPT/HCPCS: 32555; 36245; 76937; 76942; 80074; 82465; 82805; 82945; 82948; 83605; 83615; 83735; 83986; 84100; 84132; 84145; 84157; 87015; 87040; 87070; 87081; 87086; 87205; 87206; 89051; 93005; 93306; 93926; 93970; 94002; 94003; 96361; 96374; 96375; 99291; C9113; G0378; J1250; J1644; J1940; J2250; J2270; J2370; J2543; J2704; J3010; J3370; J3480; J3490; J7050; J7060